=== PATIENT | female | born 1950 | race Caucasian/White ===

== ENCOUNTER 2016-07-12 08:23 | Day surgery (SDC) | payer MEDICARE, MEDICAID ==
[~2016-07-12] VITALS: Ht 165.1 cm; Wt 58.0 kg
[2016-07-12] VITALS (11 sets, daily range): BP systolic 93–115; BP diastolic 59–95; PULSE 60–79; RESP 10–18; O2SAT 94–99
[~2016-07-12 08:23] MED LIST: ACYC400T2 PO; ALEN70TA2 PO; ALPR1TAB7 PO; KLO5T PO; LIP40 PO; Lactated Ringer's 1,000 ML IV SCH; ZOLP12.547 PO; acetaminophen
[2016-07-12] MEDS ORDERED: MetoCLOpramide 5 mg/mL 2 mL Inj ONE (08:24)
[2016-07-12] MEDS ORDERED: fentaNYL-PF 50 mCg/mL 2 mL Inj ONE (08:24)
[2016-07-12] MEDS ORDERED: Dexamethasone 4 mg/mL Inj ONE (08:24)
[2016-07-12] MEDS ORDERED: Propofol 10,000 mCg/mL 20 mL Inj ONE (08:24)
[2016-07-12] MEDS ORDERED: Ketamine 10 mg/mL 20 mL Inj ONE (08:24)
[2016-07-12] MEDS ORDERED: Ondansetron 2 mg/mL 2 mL Inj ONE (08:24)
[2016-07-12] MEDS ORDERED: Lactated Ringer's 1,000 ML IV ONE (09:00)
[2016-07-12] MEDS ORDERED: Lactated Ringer's 1,000 ML IV SCH (09:54)
[2016-07-12] MEDS ORDERED: Lactated Ringer's 500 ML IV PRN (09:54)
--- NOTE | 2016-07-12 09:54 | PCM.HPANE ---
Patient Data Surgeon Admitting Provider: Attending Provider:Kalen Da Silva DO Primary Care Physician:Tg Browning DO Other Provider:Ifrah Ferrara Anesthesia Reason for Visit Left Knee Internal Derangement Ht/WT & BMI Height (Feet): 5 Height (Inches): 5.00 Weight (Kilograms): 58 Body Mass Index 21.00 Allergies Coded Allergies: amoxicillin (Verified Allergy, Intermediate, DIARHEA, 08/12/14) erythromycin base (Verified Allergy, Intermediate, STOMACH CRAMPS, 08/12/14 ) propoxyphene (Verified Allergy, Intermediate, CHANGE IN MOOD. MAKES MEAN, 08/12/14) Penicillins (Verified Allergy, Unknown, gi upset, 07/08/16) doxepin (Verified Allergy, Unknown, burning in rectum, 07/08/16) fluoxetine (Verified Allergy, Unknown, panic attacks, 07/08/16) Past Anesthesia History Anesthesia History: Denies:: Anesthesia Reactions, Fam Anesthesia Reaction, Fam Malignant Hypertherm, Malignant Hyperthermia Diabetes History Hx Diabetes?: No MRSA MRSA: No Medications Hypertension Medication: No Home Meds Incl Beta Leela: No Reported Medications Zolpidem ER 12.5 Mg Ixbhsd90.5 Mg PO HS PRN For Insomnia Ref 0 07/08/16 Clonazepam 0.5 Mg Tablet0.5-1 Mg PO TID PRN For Anxiety Ref 0 07/08/16 Atorvastatin (Lipitor)40 Mg [id number] Mg PO DAILY Ref 0 07/08/16 Alprazolam 1 Mg Tablet1 Mg PO TID PRN For Anxiety Ref 0 07/08/16 Alendronate Sodium (Fosamax)70 Mg Gqcgxr51 Mg PO WEEKLY 30 Days Ref 0 07/08/16 Acyclovir 400 Mg [id number] Mg PO Q8H Ref 0 07/08/16 [acetaminophen] No Conflict [id number] Mg TID PRN For Pain 07/08/16 Discontinued Reported Medications Acetaminophen/Codeine 300-30mg (Tylenol/Codeine #3)1 Each Tablet1 Each PO PRN For Pain 08/08/14 Zolpidem 10 Mg Iowkpq49 Mg PO HS PRN For Insomnia 30 Days Ref 0 08/08/14 Atorvastatin Calcium 40 Mg Liirfu46 Mg PO DAILY #30 TABLET Ref 0 08/08/14 Acyclovir 800 Mg [id number] Mg PO DAILY 30 Days Ref 0 4/17/15 History History of ENT Problems?: No HEENT History: Denies:: Cataracts Glaucoma (being monitored ) Hearing Problem Sinus Problem Cardiovascular History: Denies:: AICD Abdominal Aortic Aneurism Atrial Fibrillation Cardiac Surgery Chest Pain Congestive Heart Failure Edema Heart Murmur Hypertension Irregular Heartbeat Pacemaker Peripheral Vascular Rheumatic Fever Thrombophlebitis Valvular Heart Disease Hx of Respiratory Problem?: No Respiratory History: Positive for:: Use of C-PAP Machine (sleep study done - no CPAP recommended) Denies:: Asthma COPD Emphysema Oxygen Administration Pneumonia Tuberculosis Use of Inhalers / NEBS Hx Neurologic Problems?: Yes Neurological History: Positive for:: Seizures (isolated year and a half ago) Denies:: CVA Headaches Multiple Sclerosis Parkinson's Disease TIA Hx of GI Problems?: No Gastrointestinal History: Denies:: Cirrhosis Diverticulitis Gall Bladder Disease Gastroesphageal Reflux Gastrointestinal Bleeding Heartburn Hepatitis Hiatal Hernia Rectal Bleeding Hx of Problems?: No Genitourinary History: Denies:: Kidney Stones Urinary Tract Infection Female Hx: Positive for:: Problems with Breasts? (left breast ca- hx of- lumpectomy) Denies:: Currently (hysterectomy) Skin History: Denies:: History Skin Disorders? Pressure Ulcers Hx Musculoskeletal Problems?: Yes Musculoskeletal History: Positive for:: Back Injury (chronic back pain) Musculoskeletal Trauma (left knee, prior ACL repair- left knee current admission problem) Denies:: Fibromyalgia Joint Replacement Hx of Psycho/Social Problems?: Yes Psycho Social History: Positive for:: Anxiety Hx Depression Hx Surgeries?: Yes (mastectomy, malachi/bso, appy, ACL repair) Hx Any Other Health Problems?: Yes Other History: Positive for:: Cancer (breast left) Denies:: Thyroid Disease History Blood Transfusions: Positive for:: Accept Blood Products? Denies:: Blood Transfuse Reaction Blood Transfusions Hx Diabetes: No Hx Alcohol Use: NoHx Substance Use: No (past hx of acids, benzo- none since ) Smoking Status: Never Smoker Have You Smoked inLast 12 mo: No Stop/Bang Treated for Sleep Apnea?: No Do You Have a CPAP Machine?: No S-Snoring: Do You Snore Loudly: No T-Tired: feel tired, fatigued: No O-Obsered: Observed not breath: No P-Blood Pressure: treated: No B- Body Mass Index > 35 kg/m2: No A- Age over 50: Yes N- Neck Large Circumference: No G- Gender Male: No NAVJOT Total Score: 1 NAVJOT Risk Assessment: Low Risk, <3 Yes Risk Assessment Category Category 1A: Patient has history of documented sleep apnea, and HAS NOT received any narcotic, sedative or anesthesia administration during this stay. Category 1B: Patient has history of documented sleep apnea, and HAS received any narcotic , sedative or anesthesia administration during this stay Category 2: Patient has SUSPECTED Obstructive Sleep Apnea, and HAS received any narcotic , sedative or anesthesia administration during this stay. Category 3: Patient has SUSPECTED Obstructive Sleep Apnea and HAS NOT received narcotic, sedative or anesthesia administration during this stay. Category 4: Outpatient in Procedural Areas with known sleep apnea or who screen positive for High Risk via the STOP/BANG questionnaire. Exam Exam Vital Signs Vital Signs Date Time Temp Pulse Resp B/P Pulse Ox O2 Delivery O2 Flow Rate FiO2 07/12/16 08:52 36.6 78 14 114/66 95 Room Air General Appearance: Oriented X3 HEENT/AIRWAY: MP 1, MP 2 Lungs: Normal Air Movement Heart: Regular Rate/Rhythm Meds/Labs/Diagnostics Admission Meds Current Medications Lactated Ringer's (Lr) 1,000 ml @ ud STK-MED ONCE IV Last administered on 07/12t 09:00; Start 07/12/16 at 09:00; Stop 07/12/16 at 09:01; Status DC Plan Impression Patient chart reviewed, patient interviewed and anesthestic plan with risks, benefits, and alternatives discussed, and informed consent obtained. NPO Status: clears to [id number] Jake Rojas MD Jul 12, 2016 09:54
[2016-07-12] MEDS ORDERED: fentaNYL-PF 50 mCg/mL 2 mL Inj IVPUSH PRN (09:55)
[2016-07-12] MEDS ORDERED: MetoCLOpramide 5 mg/mL 2 mL Inj IVPUSH PRN (09:55)
[2016-07-12] MEDS ORDERED: Dexamethasone 4 mg/mL Inj IVPUSH PRN (09:55)
[2016-07-12] MEDS ORDERED: Ondansetron 2 mg/mL 2 mL Inj IVPUSH PRN (09:55)
[2016-07-12] MEDS ORDERED: Phenylephrine 10,000 mCg/mL Inj IVPUSH PRN (09:55)
[2016-07-12] MEDS ORDERED: EPHEDrine Sulfate 50 mg/mL Inj IVPUSH PRN (09:55)
[2016-07-12] MEDS ORDERED: HYDROmorphone 1 mg/mL Inj IVPUSH PRN (09:55)
[2016-07-12] MEDS ORDERED: Ropivacaine-PF 0.5% 30 mL Inj INJ ONE (10:27)
[2016-07-12] MEDS ORDERED: Lidocaine 2%-Epi 1:100,000 20 mL Inj INFILTRATE ONE (10:27)
[2016-07-12] MEDS ORDERED: hydrOXYzine Pamoate 25 mg Capsule PO PRN (11:10)
[2016-07-12] MEDS ORDERED: HYDROcodone-APAP 5-325 mg Tablet PO PRN (11:10)
--- NOTE | 2016-07-12 12:42 | PCM.ANEP2 ---
Post Anesthesia Evaluation ASA/CMS Post Anesthesia VS in Patient's Normal Range?: Yes Resp Stable; Airway Patent?: Yes CV Function & Hydration Stable: Yes Mental Status Recovered?: Yes Pain control Satisfactory?: Yes N/V Control Satisfactory?: Yes Jake Rojas MD Jul 12, 2016 12:42
--- NOTE | 2016-07-12 12:42 | PCM.ANEP1 ---
Post Anesthesia Phase 1 PACU Phase 1 Assessment Vital Signs Vital Signs Date Time Temp Pulse Resp B/P Pulse Ox O2 Delivery O2 Flow Rate FiO2 07/12/16 11:30 60 16 98/61 98 Room Air 07/12/16 11:20 35.8 67 18 102/63 96 Room Air 07/12/16 11:15 71 18 101/66 95 Room Air 07/12/16 11:10 68 12 95/65 96 Room Air 07/12/16 11:05 36.6 78 12 115/95 95 Room Air 07/12/16 11:00 79 16 102/77 94 Room Air 07/12/16 10:55 62 11 99/62 98 Simple Mask 8 07/12/16 10:50 65 11 108/60 98 Simple Mask 8 07/12/16 10:45 36.5 67 10 93/59 99 Simple Mask 8 07/12/16 08:52 36.6 78 14 114/66 95 Room Air Anesthetic Administered: GA Level of Alertness: Awake, talking Pain: No Nausea or Vomiting: No Airway Device: Oralpharangeal Airway Oxygen Delivery: Room Air Lungs: Normal Air Movement Jake Rojas MD Jul 12, 2016 12:42
--- NOTE | 2016-07-12 15:46 | OP ---
[address] [address] OPERATIVE REPORT PATIENT: DAYANA JAIN : 1950 MR#: [id number] ADMIT: 07/12/2016 JOB ID: [id number] DATE OF SURGERY: 07/12/2016 PREOPERATIVE DIAGNOSIS(ES): Left knee torn lateral meniscus. POSTOPERATIVE DIAGNOSIS(ES): Left knee torn lateral meniscus. PROCEDURE: Left knee video arthroscopy with partial lateral meniscectomy. SURGEON: Kalen Da Silva M.D ANESTHESIA: General. INDICATIONS: The patient is a 66-year-old female with left knee pain over the lateral aspect. She had a tibial plateau fracture last year and has had pain and mechanical symptoms. Had an MRI which has demonstrated a torn lateral meniscus. We discussed treatment options for this and she wished to proceed with a left knee scope with partial lateral meniscectomy. We discussed the risks, benefits, and possible complications of surgery. All questions were answered and she wished to proceed. PROCEDURE IN DETAIL: The patient was brought to the operating room. She was given a LMA general anesthetic and the left lower extremity was sterilely prepped and draped. An incision was made over the anterolateral lateral knee at the level of the joint line. Inspection was undertaken. She was found to have some degenerative changes in the patellofemoral joint as well as some degenerative changes in the medial compartment. Her medial meniscus was not torn. Her ACL was intact. 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 Her meniscal tear was resected back to a stable base with a combination of biters and shaver. She was also noted to have a small focal area of C4 chondromalacia in the lateral femoral condyle. The scope was then removed and the ports were closed with interrupted nylon suture. Naropin was added as an adjunct local anesthetic. Sterile dressings were applied. Patient tolerated the procedure well. Blood loss was minimal. POSTOPERATIVE PROTOCOL: Have the patient weightbear to tolerance. Ice and elevate. Followup in two weeks or sooner if needed. She is given a prescription for [place] 5/325 and Vistaril for pain.
== END 2016-07-12 23:59 | disposition home or self-care (01) ==
LOC: SAS 08:23
PROVIDERS: ATTEND Orthopaedic Surgery
DX: M23.252 Derangement of posterior horn of lateral meniscus due to old tear or injury, left knee (principal); M94.262 Chondromalacia, left knee; G89.29 Other chronic pain; M54.9 Dorsalgia, unspecified; F41.9 Anxiety disorder, unspecified; F32.9 Major depressive disorder, single episode, unspecified; Z79.899 Other long term (current) drug therapy
CPT/HCPCS: 29881; J2795; J7120; Q0177